=== PATIENT | male | born 1965 ===

== ENCOUNTER 2017-03-12 12:49 | Emergency (ER) | payer OTHER ==
[~2017-03-12] VITALS: Ht 170.2 cm; Wt 72.6 kg
[~2017-03-12 12:49] MED LIST: KETO10TA2 PO; MEDROLPACK PO; ORPH100T PO
[2017-03-12] MEDS ORDERED: ZITHROMAX TRI-500 MG PO (17:53)
[2017-03-12] MEDS ORDERED: TUSSI PRES-B L120 M1 PO (17:53)
== END 2017-03-12 18:10 | disposition home or self-care (01) ==
LOC: ER 12:49
DX: B34.9 Viral infection, unspecified (principal)